=== PATIENT | male | born 1980 | race Caucasian/White ===

== ENCOUNTER 2018-09-06 19:49 | Emergency (ER) | payer MEDICAID, SELFPAY ==
[2018-09-06 19:51] VITALS: BP 165/85; PULSE 96; RESP 17; TEMP 36.7; O2SAT 95; BMI 31.7
--- NOTE | 2018-09-06 20:01 | CT_ITS ---
STUDY: CT CHEST WITHOUT CONTRAST REASON FOR EXAM: Male, 38 years old. Right parasternal skin and subcutaneous mass, increased in size RADIATION DOSAGE (If Supplied By Facility): CTDIvol = ( 15.38 ) mGy, DLP = ( 565.01 ) mGycm TECHNIQUE: Transaxial imaging was performed without the administration of intravenous contrast material. Individualized dose optimization techniques were used for this CT. COMPARISON: None. FINDINGS: No airspace consolidation. There are granulomata right upper lobe. There is no demonstrated pleural abnormality. Normal heart and pericardium. Normal mediastinum. There are calcified right hilar lymph nodes. Normal unenhanced pulmonary arteries. Normal aorta arch and descending thoracic aorta. Normal osseous structures. The anterior soft tissues are normal without evidence of solid or cystic mass. There is no demonstrated abnormality of the visualized upper abdomen. CT/Chest without Contrast IMPRESSION: No chest wall mass or fluid collection. Electronically Signed: Silvio Jean MD at 21:01 EST , Service support ,
--- NOTE | 2018-09-06 20:04 | ED.DCSUM_ITS ---
- ER Visit Summary Date of Service: 09/06/18 Chief Complaint: Chest wall mass History of Present Illness: The patient is a 38 M who states he has a mass on his chest wall. Is been there for 2 months. It started becoming painful last night. He states it seems to be growing. He denies any drainage from this area. He took nothing for it. No history of this in the past. Physical Examination: Vital signs reviewed. HEENT exam unremarkable. Heart is regular rate and rhythm. Lungs clear bilaterally. He has right parasternal chest tenderness where this mass is purported to be located. I do not feel any large mass. Abdomen soft and tender. Neurologic exam normal. Test Results: CT chest reveals no acute abnormalities Emergency Department Course and Treatment: Patient had a CT of the chest which reveals no anterior chest wall masses. He could have just some costochondritis. He will take NSAIDs use ice. Will follow up with PCP Treatment Plan: [] Disposition: Discharge Impression: Chest wall pain This note was generated with [employer] dictation software. It may contain incorrect words, spelling, and punctuation that were not noted in review of the chart prior to signing ED Disposition - Plan for ED Patient: Chief Complaint: Chest Other Referrals: Care Physician,No Primary [Primary Care Provider] -
--- NOTE | 2018-09-06 21:06 | ED.DEP ---
ED Disposition - Plan for ED Patient: Disposition: Home or Assisted Living Chief Complaint: Chest Other Instructions: ED Chest Pain Costochondritis Referrals: Care Physician,No Primary [Primary Care Provider] -
[2018-09-06 21:08] VITALS: RESP 18; O2SAT 98
== END 2018-09-06 21:09 | disposition home or self-care (01) ==
PROVIDERS: Emergency Provider Emergency Medicine
DX: R07.89 Other chest pain (principal); Z72.0 Tobacco use
CPT/HCPCS: 71250; 99282

== ENCOUNTER 2020-07-06 00:50 | Emergency (ER) | payer MEDICAID, SELFPAY ==
[2020-07-06 00:50] VITALS: BP 192/132; PULSE 102; RESP 18; TEMP 36.6; O2SAT 98; BMI 32.0
--- NOTE | 2020-07-06 01:07 | CT_ITS ---
STUDY: CT ABDOMEN AND PELVIS WITHOUT CONTRAST REASON FOR EXAM: Male, 39 years old. RT FLANK PAIN WITH BROWN URINE RADIATION DOSAGE (If Supplied By Facility): CTDIvol = ( 9.79 ) mGy, DLP = ( 560.26 ) mGycm TECHNIQUE: Transaxial 2.5 mm images were obtained from the dome of the diaphragm to the symphysis pubis without oral contrast, and without intravenous contrast. Sagittal and coronal images were reconstructed. This examination is limited for the evaluation of gastrointestinal, solid organs and vascular structures due to the lack of intravenous and oral contrast. Individualized dose optimization techniques were used for this CT. COMPARISON: None. FINDINGS: The visualized lung bases are unremarkable. The visualized portions of the heart are within normal limits. Normal liver. Normal gallbladder and extrahepatic biliary system. Normal spleen. Normal pancreas. Normal bilateral adrenal glands. Right nephromegaly with indistinct contour, stranding and perirenal fluid, hydronephrosis and hydroureter with a calculus passed the right UVJ projecting in the lumen of the urinary bladder during 1 x 2 mm approximately. There is a nonobstructing 1 to 2 mm right inferior renal pole calculus. The right interpolar cortex demonstrate a small area of low attenuation approximately 0.8 cm, too small to characterize. Punctate nonobstructing calculus in the left UPJ. Fluid and particle distended stomach. Normal small intestine. Normal colon. The appendix is visualized and appears normal. Normal abdominal aorta. Normal inferior vena cava. Normal retroperitoneum. Decompressed urinary bladder. Normal abdominal wall. 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 CT/Abdomen/Pelvis without Cont IMPRESSION: Mild right hydronephrosis and hydroureter with an calculus past the right UVJ into the lumen of the urinary bladder. Tiny nonobstructing calculus in the left UPJ. Small right nonobstructing inferior pole calculus. Indeterminate low-attenuation of the interpolar right kidney. Correlation to prior assessment a follow-up ultrasound recommended. Osseous changes as above. This appears nonacute and may be posttraumatic. Electronically Signed: Lilly Izaguirre MD at 2:24 EST , Service support ,
[2020-07-06] MEDS: Ondansetron 4 MG/2 ML Vial IV (01:14)
[2020-07-06 01:15] LABS: Mucous, Urine 0 SEEN /hpf (<or=2+); Squamous Epithelial Cells - UA 0 SEEN /hpf (0-5)
[2020-07-06] MEDS: Ketorolac 30 MG/ML Syringe IV (01:15)
[2020-07-06] MEDS: 0.9% Normal Saline 1,000 ML 250 ML IV (01:16)
[2020-07-06 01:19] LABS: Glucose, Dipstick Normal (Normal); Ketone-Dipstick 5 mg/dl (Negative); Leukocyte Esterase-Dipstick 25 /ul (Negative); Nitrite-Dipstick Positive (Negative); Occult Blood-Urine 250 /ul (Negative); Protein-Dipstick 30 mg/dl (Negative); Urine Clarity Cloudy (Clear); Urine Urobilinogen 8 mg/dl (Normal)
[2020-07-06 01:20] LABS: Absolute Lymphocyte Count 1.89 X10^3/uL (0.83-4.51); Absolute Neutrophil Count 9.4 X10^3/uL (2.0-7.7); Basophil# 0.07 X10^3/uL; Basophil% 0.5 % (0-1); Eosinophil# 0.39 X10^3/uL; Eosinophils% 3.1 % (0-5); Hematocrit 44.5 % (40-54); Hemoglobin 14.8 g/dL (13.0-16.5); Lymphocyte # 1.89 X10^3/ul (4.0); Lymphocyte % 14.8 % (19-41); Mean Corp Hgb Conc 33.3 g/dL (32-36); Mean Corpuscular Hgb 28.4 pg (27.0-32.0); Mean Corpuscular Volume 85.4 fL (80-94); Mean Platelet Vol. 9.8 fl (6.2-12.0); Monocyte% 7.8 % (0-10); NRBC Flagged by Analyzer 0 % (0-5); Neutrophil # 9.35 X10^3/uL (2.7-7.7); Neutrophil % 73.3 % (47-70); Platelet Count 283 K/mm3 (150-450); RBC Distribution Width SD 40.1 fl (35.1-43.9); Red Blood Count 5.21 M/mm3 (4.6-6.2); White Blood Count 12.8 K/mm3 (4.4-11.0)
[2020-07-06 01:22] LABS: Color, Urine SEE COMMENT BELOW (Yellow); Urine Bilirubin Dipstick 3 mg/dL (Negative)
[2020-07-06 01:25] LABS: Bacteria RARE /hpf (None Seen); Red Blood Cells-Urine 0-5 SEEN /hpf (0-5); Transitional Epithelial - Ur 0-5 SEEN /hpf (0-5); White Blood Cells 5-10 SEEN /hpf (0-5)
[2020-07-06 01:38] LABS: Anion Gap 3 (5-15); BUN 7 mg/dL (7-18); BUN/Creat Ratio 5.7 RATIO (10-20); Calcium,Total 9.4 mg/dL (8.5-10.1); Chloride 106 mmol/L (98-107); Creatinine, Serum 1.23 mg/dL (0.70-1.30); EST Glomerular Filtration Rate 69 mL/min (>60); Est Glom Filt Rate - Afr Amer 84 mL/min (>60); Estimated Creatinine Clearance 69.44 ml/min; Glucose 120 mg/dL (74-106); Potassium 3.9 mmol/L (3.5-5.1); Sodium Level 141 mmol/L (136-145)
--- NOTE | 2020-07-06 02:27 | ED.VISSUMM ---
- ER Visit Summary Date of Service: 07/06/20 Chief Complaint: Right flank pain History of Present Illness: The patient is a 39 M who has right flank pain. Started yesterday. He is very sharp pains in the right flank that radiates anteriorly toward his abdomen. No nausea or vomiting. He does have some pressure when he urinates. He denies hematuria. No fevers. He took some UTI pills, ibuprofen and Azo today. He has no history of kidney stones. He does have a history of urinary tract infections in the past. Physical Examination: Vital signs reviewed. HEENT exam unremarkable. Heart is regular rate and rhythm without murmurs. Lungs are clear to auscultation. Abdomen is soft and nontender. Extremities reveal no edema. Skin exam normal. Neurologic exam normal. Test Results: White blood cell count 12.8, glucose 120. Urinalysis has positive nitrites. CAT scan reveals a recently passed stone into the lumen of the bladder from the right ureter. He also has a nonobstructing stone at the left UPJ. Emergency Department Course and Treatment: Patient was given Toradol and Zofran as well as IV fluids. Upon reevaluation he is feeling symptomatically improved. Since he does have some nitrites I will treat him with Keflex. I will send his urine off for culture. I will give him a short course of [place] if pain returns. He will follow-up with his PCP. Treatment Plan: [] Disposition: Discharge Impression: Renal colic, UTI This note was generated with [employer] dictation software. It may contain incorrect words, spelling, and punctuation that were not noted in review of the chart prior to signing ED Disposition - Plan for ED Patient: Disposition: Home or Assisted Living Instructions: ED Renal Stone w Colic Prescriptions: Cephalexin [Keflex] 500 mg PO Q12 #10 cap [facility] Hydro[facility]one Bitart/Apap 5-325 [[place] 5MG-325MG] 1 tablet PO Q6H PRN PRN 3 Days #8 tablet PRN Reason: Pain [facility] Referrals: Care Physician,No Primary [Primary Care Provider] -
[2020-07-06] MEDS: Cephalexin 250 MG Capsule 500 MG PO (02:43)
[2020-07-06 02:47] VITALS: BP 154/78; PULSE 88; RESP 18; O2SAT 95
== END 2020-07-06 02:49 | disposition home or self-care (01) ==
PROVIDERS: Emergency Provider Emergency Medicine
DX: N23 Unspecified renal colic (principal); N39.0 Urinary tract infection, site not specified; Z87.440 Personal history of urinary (tract) infections; Z72.0 Tobacco use
CPT/HCPCS: 74176; 80048; 81001; 85025; 87086; 96361; 96374; 96375; 99283; J7030; A4216; J2405